=== PATIENT | female | born 1950 | race Hispanic/Latino ===

== ENCOUNTER 2020-02-04 10:49 | Emergency (ER) | payer OTHER ==
[~2020-02-04 10:49] MED LIST: AEC81 PO; ASPI-555 PO; CARV6.25 PO; CETI10TA57 PO; CETI10TA86 PO; CHOL20004 PO; CYAN100022 SL; CYAN1TAB55; GINK120C PO; MULT-1203 PO; MULT400T5 PO; OMEG-112 PO; OMEGA 3 KRILL OIL PO; ROSU5TAB PO; TERB250T51 PO; UBID100C45 PO
[2020-02-04 11:45] LABS: BASOPHILS % (AUTO) 0.6 % (0.0-5.0); EOSINOPHILS % (AUTO) 2.4 % (0.0-8.0); HEMATOCRIT 39.1 % (36-48); LYMPHOCYTES % (AUTO) 34.2 % (21.0-51.0); MEAN CORPUSCULAR HEMOGLOBIN 30.1 pg (27.0-33.0); MEAN CORPUSCULAR VOLUME 91.1 fL (79-99); MONOCYTES % (AUTO) 7.3 % (3.0-13.0); NEUTROPHILS % (AUTO) 55.3 % (40.0-77.0); PLATELET COUNT (AUTO) 240 K/uL (130-400); RED BLOOD CELL COUNT(AUTO) 4.29 MIL/uL (4.00-5.50); RED CELL DISTRIBUTION WIDTH 14.1 % (11.0-15.5); WHITE BLOOD COUNT (AUTO) 6.3 K/uL (4.8-10.8)
[2020-02-04 11:55] LABS: CREATININE 0.9 mg/dL (0.5-1.5); POTASSIUM 4.1 mmol/L (3.5-5.1)
[2020-02-04 11:59] LABS: ALBUMIN 4.1 g/dL (3.5-5.0); BILIRUBIN,TOTAL 0.3 mg/dL (0.2-1.0); TOTAL PROTEIN, SERUM 7.7 g/dL (6.0-8.3)
[2020-02-04 12:09] LABS: APPEARANCE,URINE Clear (CLEAR); BILIRUBIN,URINE Negative (NEGATIVE); COLOR,URINE Yellow (YELLOW); GLUCOSE, URINE (UA) Negative (NEGATIVE); KETONES,URINE Negative (NEGATIVE); LEUKOCYTE ESTERASE ,URINE Negative (NEGATIVE); NITRATE,URINE Negative (NEGATIVE); OCCULT BLOOD,URINE Negative (NEGATIVE); PH,URINE 7.5 (5.0-8.0); PROTEIN,URINE Negative (NEGATIVE); UROBILINOGEN,URINE 0.2 mg/dL (0.2-1.0)
== END 2020-02-04 14:24 | disposition home or self-care (01) ==
LOC: EDH 10:49
DX: K80.20 Calculus of gallbladder without cholecystitis without obstruction (principal); K59.00 Constipation, unspecified; I10 Essential (primary) hypertension; E78.00 Pure hypercholesterolemia, unspecified; Z90.5 Acquired absence of kidney; Z98.890 Other specified postprocedural states
CPT/HCPCS: 36415; 74176; 76705; 80053; 81003; 82150; 83690; 85025; 93005

== ENCOUNTER 2020-04-04 12:58 | Emergency (ER) | payer OTHER ==
[~2020-04-04 12:58] MED LIST changes: -ASPI-555 PO; +CALCIUM,MG,ZINC PO; -CETI10TA57 PO; -CETI10TA86 PO; -CHOL20004 PO; -CYAN100022 SL; -CYAN1TAB55; +GARL1000 PO; -GINK120C PO; -MULT-1203 PO; +MULT-1367 PO; -MULT400T5 PO; -OMEG-112 PO; -OMEGA 3 KRILL OIL PO; +OMEGA Q PLUS PO; +PANT20TA12 PO; +ROSU20TA31 PO; -ROSU5TAB PO; -TERB250T51 PO; +TRAM50TA4 PO; -UBID100C45 PO; +VITAMIN D PO
[2020-04-04] MEDS ORDERED: KETOROLAC TROMETHAMINE 15MG/ML ONE (13:48)
[2020-04-04 14:07] LABS: BASOPHILS % (AUTO) 0.1 % (0.0-5.0); EOSINOPHILS % (AUTO) 0.1 % (0.0-8.0); HEMATOCRIT 38.6 % (36-48); LYMPHOCYTES % (AUTO) 11.8 % (21.0-51.0); MEAN CORPUSCULAR HGB CONC 33.2 g/dL (32.0-36.0); MEAN CORPUSCULAR VOLUME 90.6 fL (79-99); MONOCYTES % (AUTO) 7.6 % (3.0-13.0); PLATELET COUNT (AUTO) 220 K/uL (130-400); RED BLOOD CELL COUNT(AUTO) 4.26 MIL/uL (4.00-5.50); RED CELL DISTRIBUTION WIDTH 14.8 % (11.0-15.5); WHITE BLOOD COUNT (AUTO) 15.8 K/uL (4.8-10.8)
[2020-04-04 14:13] LABS: CREATININE 0.9 mg/dL (0.5-1.5); POTASSIUM 4.3 mmol/L (3.5-5.1)
[2020-04-04] MEDS ORDERED: SIMETHICONE 80 MG TAB.CHEW ONE (16:17)
== END 2020-04-04 17:08 | disposition home or self-care (01) ==
LOC: EDH 12:58
DX: G89.18 Other acute postprocedural pain (principal); R10.84 Generalized abdominal pain; I10 Essential (primary) hypertension; E78.00 Pure hypercholesterolemia, unspecified; Z88.8 Allergy status to other drugs, medicaments and biological substances; Z98.890 Other specified postprocedural states; Z93.6 Other artificial openings of urinary tract status
CPT/HCPCS: 36415; 74176; 80048; 85025; 93005; 96374; 99284; J1885

== ENCOUNTER 2020-10-16 17:41 | Emergency (ER) | payer MEDICARE, OTHER ==
[~2020-10-16 17:41] MED LIST changes: -PANT20TA12 PO; +PANT20TA18 PO
[2020-10-16] MEDS ORDERED: ORPHENADRINE CITRATE 30 MG/ML ML ONE (19:52)
[2020-10-16] MEDS ORDERED: KETOROLAC TROMETHAMINE 30MG/ML ONE (19:52)
== END 2020-10-16 20:52 | disposition home or self-care (01) ==
LOC: EDH 17:41
DX: M62.838 Other muscle spasm (principal); E78.00 Pure hypercholesterolemia, unspecified; I10 Essential (primary) hypertension; Z90.49 Acquired absence of other specified parts of digestive tract; Z88.8 Allergy status to other drugs, medicaments and biological substances
CPT/HCPCS: 96372 ×2; 99284; J1885; J2360

== ENCOUNTER 2022-08-17 12:27 | Emergency (ER) | payer MEDICARE, OTHER ==
[~2022-08-17] VITALS: Ht 152.4 cm; Wt 59.0 kg
[2022-08-17 13:03] LABS: BASOPHILS % (AUTO) 0.9 % (0.0-5.0); EOSINOPHILS % (AUTO) 2.8 % (0.0-8.0); HEMATOCRIT 39.3 % (36-48); MEAN CORPUSCULAR HEMOGLOBIN 30.1 pg (27.0-33.0); MEAN CORPUSCULAR HGB CONC 33.1 g/dL (32.0-36.0); MONOCYTES % (AUTO) 8.5 % (3.0-13.0); NEUTROPHILS % (AUTO) 44.6 % (40.0-77.0); PLATELET COUNT (AUTO) 240 K/uL (130-400); RED BLOOD CELL COUNT(AUTO) 4.32 MIL/uL (4.00-5.50); RED CELL DISTRIBUTION WIDTH 14.3 % (11.0-15.5); WHITE BLOOD COUNT (AUTO) 4.6 K/uL (4.8-10.8)
[2022-08-17 13:05] LABS: APPEARANCE,URINE CLEAR (CLEAR); BILIRUBIN,URINE NEGATIVE (NEGATIVE); COLOR,URINE YELLOW (YELLOW); GLUCOSE, URINE (UA) NEGATIVE (NEGATIVE); KETONES,URINE NEGATIVE (NEGATIVE); LEUKOCYTE ESTERASE ,URINE 500 Leu/uL (NEGATIVE); NITRATE,URINE NEGATIVE (NEGATIVE); OCCULT BLOOD,URINE NEGATIVE (NEGATIVE); PH,URINE 5.5 (5.0-8.0); PROTEIN,URINE NEGATIVE (NEGATIVE); UROBILINOGEN,URINE 0.2 mg/dL (0.2-1.0)
[2022-08-17 13:11] LABS: CREATININE 0.8 mg/dL (0.5-1.5)
[2022-08-17 13:12] LABS: BACTERIA,URINE RARE /HPF (None Seen); MUCUS,URINE RARE LPF (None Seen); SQUAMOUS EPITHELIAL CELL,UR FEW /HPF (0-2)
[2022-08-17 13:25] LABS: ALBUMIN 3.6 g/dL (3.5-5.0); TOTAL PROTEIN, SERUM 7.5 g/dL (6.0-8.3)
[2022-08-17] MEDS ORDERED: 0.9%NACL 1000ML 1,000 ML IV ONE (15:30)
[2022-08-17] MEDS ORDERED: PROCHLORPERAZINE 10MG/2ML INJ IV ONE (15:30)
[2022-08-17] MEDS ORDERED: FAMOTIDINE 20MG VIAL IV ONE (15:30)
[2022-08-17] MEDS ORDERED: CEFTRIAXONE 1G VIAL IVP ONE (16:00)
[2022-08-17 17:41] VITALS: BP 127/55
[2022-08-17] MEDS ORDERED: FAMO-136 PO (17:42)
[2022-08-17] MEDS ORDERED: CEPH500B PO (17:42)
== END 2022-08-17 17:51 | disposition home or self-care (01) ==
LOC: EDH 12:27
DX: K29.70 Gastritis, unspecified, without bleeding (principal); K29.80 Duodenitis without bleeding; N39.0 Urinary tract infection, site not specified; E78.00 Pure hypercholesterolemia, unspecified; I10 Essential (primary) hypertension; Z90.49 Acquired absence of other specified parts of digestive tract; Z98.890 Other specified postprocedural states; Z79.82 Long term (current) use of aspirin; Z79.899 Other long term (current) drug therapy; Z88.8 Allergy status to other drugs, medicaments and biological substances
CPT/HCPCS: 99284; 74176; 96374; 96375; 96361; 82550; 80053; 83690; 85025; 87088; 81001; 36415; J3490; J7030; J0780; J0696